=== PATIENT | female | born 1955 | race Caucasian/White ===

== ENCOUNTER 2019-07-13 16:37 | Emergency (ER) | payer MEDICAID ==
[~2019-07-13] VITALS: Ht 154.9 cm; Wt 52.0 kg
[2019-07-13 19:02] VITALS: BP 131/87
== END 2019-07-13 19:17 | disposition home or self-care (01) ==
LOC: ED 19:08
DX: S13.9XXA Sprain of joints and ligaments of unspecified parts of neck, initial encounter (principal); S33.5XXA Sprain of ligaments of lumbar spine, initial encounter; M54.6 Pain in thoracic spine; W19.XXXA Unspecified fall, initial encounter; Y93.89 Activity, other specified; Y92.009 Unspecified place in unspecified non-institutional (private) residence as the place of occurrence of the external cause; Y99.8 Other external cause status; E11.9 Type 2 diabetes mellitus without complications; I10 Essential (primary) hypertension
CPT/HCPCS: 72110; 96374; 99283; J1885

== ENCOUNTER 2020-11-26 19:08 | Emergency (ER) | payer MEDICAID ==
[~2020-11-26] VITALS: Ht 154.9 cm; Wt 58.0 kg
[~2020-11-26 19:08] MED LIST: ATEN25TA PO; CHOL100012 PO; CHOL200052 PO; FLUO20TA25 PO; LEVO175T5 PO; METF500T17 PO; MULT-212 PO; OXYC-307 PO; RANI150T4 PO
--- NOTE | 2020-11-26 19:18 | NUR ---
PT BIB EMS FOR INCREASING WEAKNESS OVER THE PAST COUPLE WEEKS AND PT HAD A GLF TODAY WHICH PROMPTED HER TO CALL 911. PT HAS HX OF DMII AND PER EMS HAD A FINGERSTICK BLOOD SUGAR OF 554. PT GOT 250ML NS JACKSCREW MAN. PT ALSO CO OF INCREASED URINATION AND INCREASED THIRST OVER THE PAST FEW DAYS. PT STATES "I TAKE 6 UNITS IN THE MORNING AND 6 UNITS AT NIGHT FOR MY DIABETES". PT RESTING IN GURNEY CONNECTED TO ALL MONTIORING EQUIPMENT. PROVIDER BEDSIDE FOR ASSESSMENT
[2020-11-26] MEDS ORDERED: SODIUM CHLORIDE FLUSH 10ML SYR IVF ONE (20:00)
[2020-11-26] MEDS ORDERED: SODIUM CHLORIDE 0.9% 1,000ML IVBOLUS ONE (20:00)
[2020-11-26 20:01] LABS: MICROSCOPIC NOT IND
--- NOTE | 2020-11-26 20:01 | NUR ---
PT RESTING ON [employer] WATCHING TV. VSS. ELKE.
[2020-11-26 21:16] LABS: BASOPHILS % (AUTO) 1 % (0-1); EOSINOPHILS % (AUTO) 1 % (1-7); LYMPHOCYTES % (AUTO) 30 % (22-44); MEAN CORPUSCULAR HEMOGLOBIN 32.7 pg (27.0-34.8); MEAN CORPUSCULAR HGB CONC 34.6 g/dL (32.4-35.8); MEAN PLATELET VOLUME 7.2 fL (7.4-10.4); MONOCYTES % (AUTO) 6 % (2-9); NEUTROPHILS % (AUTO) 63 % (42-75); PLATELET COUNT 370 x10^3/uL (130-400); RED BLOOD COUNT 4.25 x10^6/uL (3.82-5.3); RED CELL DISTRIBUTION WIDTH 14.1 % (9.6-15.2)
[2020-11-26 21:17] LABS: MD NO
[2020-11-26 21:21] LABS: ALANINE AMINOTRANSFERASE 38 U/L (12-78); ALBUMIN 3.6 g/dL (3.4-5.0); ANION GAP 6 mmol/L (5-15); CALCIUM 9.1 mg/dL (8.5-10.1); CHLORIDE 101 mmol/L (98-107); CREATININE 0.64 mg/dL (0.55-1.02)
[2020-11-26 21:42] VITALS: BP 149/88
--- NOTE | 2020-11-26 21:42 | NUR ---
PT RESTING ON [place]IK. VSS. NAD. AWAITING PENDING LABS. PT STATES NO NEEDS AT THIS TIME
[2020-11-26 21:51] LABS: ALKALINE PHOSPHATASE 99 U/L (45-117); BILIRUBIN,TOTAL 0.6 mg/dL (0.2-1.0); TOTAL PROTEIN 6.7 g/dL (6.4-8.2); TROPONIN I < 0.015 ng/mL (0.000-0.045)
[2020-11-26 22:06] LABS: FREE T4 (FREE THYROXINE) 0.28 ng/dL (0.76-1.46)
== END 2020-11-26 23:44 | disposition home or self-care (01) ==
LOC: ED 20:47
DX: S09.90XA Unspecified injury of head, initial encounter (principal); R55 Syncope and collapse; R42 Dizziness and giddiness; R94.6 Abnormal results of thyroid function studies; R07.9 Chest pain, unspecified; R94.31 Abnormal electrocardiogram [ECG] [EKG]; E03.9 Hypothyroidism, unspecified; F17.210 Nicotine dependence, cigarettes, uncomplicated; E11.69 Type 2 diabetes mellitus with other specified complication; I10 Essential (primary) hypertension; X58.XXXA Exposure to other specified factors, initial encounter; Y93.89 Activity, other specified; Y92.89 Other specified places as the place of occurrence of the external cause; Y99.8 Other external cause status
CPT/HCPCS: 36415; 70450; 71045; 80053; 81003; 84439; 84443; 84484; 85025; 93005; 99285; 99406